=== PATIENT | male | born 1960 | race Caucasian/White ===

== ENCOUNTER 2017-05-01 09:14 | Day surgery (SDC) | payer OTHER ==
[~2017-05-01] VITALS: Ht 167.6 cm; Wt 67.5 kg
[~2017-05-01 09:14] MED LIST: ASPI325 PO; ATOR10 PO; CLOP75 PO; DIAZ5 PO; MECL25 PO; METO100ER PO; METO50 PO; OMEPRAZOLE MAGN20 MG PO
[2017-05-01] MEDS ORDERED: ATOR40TA PO (09:52)
--- NOTE | 2017-05-01 10:16 | NUR ---
05/01/17 Alyssa Daigle PT WAS NOTIFIED OF DELAY DUE TO A PREVIOUS PROCEDURE TAKING LONGER THAN SCHEDULED. PT REPORTS HE IS COMFORTABLE AT THIS TIME. HE HAS FAMILY AT THE BEDSIDE AND CALL LIGHT IS WITHIN REACH. BED IS IN THE LOWEST LOCKED POSITION.
--- NOTE | 2017-05-01 13:01 | NUR ---
05/01/17 1301 Katherine Edmonds PATIENT VERY SEDATED. AT SIDE. VSS. TOLERATING PO FLUIDS. WILL CONTINUE TO MONITOR AND DISCHARGE WHEN READY.
== END 2017-05-01 13:25 | disposition home or self-care (01) ==
LOC: ORSCSDS 09:14
PROVIDERS: Internal Medicine Gastroenterology
PROC: 0DBK8ZX Excision of Ascending Colon, Via Natural or Artificial Opening Endoscopic, Diagnostic (ICD-10-PCS; principal; 2017-05-01 10:30)
PROC: 0DBN8ZX Excision of Sigmoid Colon, Via Natural or Artificial Opening Endoscopic, Diagnostic (ICD-10-PCS; principal; 2017-05-01 10:30)
PROC: 0DBM8ZX Excision of Descending Colon, Via Natural or Artificial Opening Endoscopic, Diagnostic (ICD-10-PCS; principal; 2017-05-01 10:30)
PROC: 0DBL8ZX Excision of Transverse Colon, Via Natural or Artificial Opening Endoscopic, Diagnostic (ICD-10-PCS; principal; 2017-05-01 10:30)
PROC: 0DB58ZX Excision of Esophagus, Via Natural or Artificial Opening Endoscopic, Diagnostic (ICD-10-PCS; principal; 2017-05-01 10:30)
DX: R19.5 Other fecal abnormalities (principal); D12.5 Benign neoplasm of sigmoid colon; D12.2 Benign neoplasm of ascending colon; D12.3 Benign neoplasm of transverse colon; D12.4 Benign neoplasm of descending colon; K57.30 Diverticulosis of large intestine without perforation or abscess without bleeding; K21.9 Gastro-esophageal reflux disease without esophagitis; K22.70 Barrett's esophagus without dysplasia; B37.81 Candidal esophagitis; E78.5 Hyperlipidemia, unspecified; I10 Essential (primary) hypertension; J44.9 Chronic obstructive pulmonary disease, unspecified; F17.210 Nicotine dependence, cigarettes, uncomplicated; Z79.899 Other long term (current) drug therapy
CPT/HCPCS: 88305; 88312; J1980; J2250; J2310; J3010; J7120

== ENCOUNTER → 2017-09-01 | Outpatient (CLI) | payer OTHER ==
[~2017-09-01] MED LIST changes: +ATOR40TA PO
[2017-09-01 12:08] LABS: BASOPHILS ABSOLUTE AUTO 0.11 K/mm3 (0.00-0.23); BASOPHILS PERCENT AUTO 1 % (0-2); EOSINOPHILS ABSOLUTE AUTO 0.16 K/mm3 (0.00-0.68); EOSINOPHILS PERCENT AUTO 1 % (0-6); Hematocrit 43.8 % (37.0-53.0); Hemoglobin 14.8 g/dL (13.5-17.5); IMMATURE GRAN ABSOLUTE AUTO 0.08 K/mm3 (0.00-0.10); IMMATURE GRAN PERCENT AUTO 1 % (0-1); LYMPHOCYTES ABSOLUTE AUTO 1.41 K/mm3 (0.84-5.20); LYMPHOCYTES PERCENT AUTO 9 % (21-46); MONOCYTES ABSOLUTE AUTO 1.25 K/mm3 (0.16-1.47); MONOCYTES PERCENT AUTO 8 % (4-13); Mean Corpuscular HGB 32.5 pg (26.0-34.0); Mean Corpuscular HGB Conc 33.8 g/dL (31.5-36.5); Mean Corpuscular Volume 96 fL (80-100); Mean Platelet Volume 10.3 fL (9.1-12.4); NEUTROPHILS ABSOLUTE AUTO 13.54 K/mm3 (1.96-9.15); NEUTROPHILS PERCENT AUTO 82 % (41-73); Platelet Count 269 K/mm3 (150-400); RDW Coefficient Variation 13.6 % (11.7-14.2); RDW Standard Deviation 48.2 fL (35.1-46.3); Red Blood Cell Count 4.55 M/mm3 (4.30-5.90); White Blood Cell Count 16.55 K/mm3 (4.00-11.30)
== END | disposition home or self-care (01) ==
LOC: LAB EV 12:01 → LAB SHORT 12:01
PROVIDERS: Physician Assistant Surgical
DX: M79.675 Pain in left toe(s) (principal)
CPT/HCPCS: 84550; 85025

== ENCOUNTER → 2018-01-03 | Outpatient (CLI) | payer OTHER ==
[2018-01-03 13:40] LABS: Source, Urine Clean Catch
[2018-01-03 14:45] LABS: Bilirubin, Urine Neg (Neg); Blood, Urine 1+ (Neg); Glucose Qualitative, Urine Neg (Neg); Ketones, Urine Neg (Neg); Leukocyte Esterase, Urine 1+ (Neg); Nitrite, Urine Neg (Neg); Protein, Urine Neg (Neg); Specific Gravity, Urine 1.005 (1.003-1.022); Urobilinogen, Urine NORM (Normal); pH, Urine 6.5 (5.0-8.0)
[2018-01-03 15:01] LABS: Appearance, Urine Hazy (Clear); Color, Urine Yellow (P-Yellow)
[2018-01-03 15:03] LABS: Bacteria Few /hpf; Red Blood Cells, Urine 0-2 /hpf (0-2); Squamous Epithelial Cells Few /hpf (Few); White Blood Cells, Urine 0-2 /hpf (0-5)
== END ==
LOC: LAB SHORT 13:37 → LAB 13:37
PROVIDERS: Radiology Therapeutic Radiology
DX: R30.0 Dysuria (principal)
CPT/HCPCS: 81001; 87086

== ENCOUNTER 2020-08-28 07:45 | Day surgery (SDC) | payer OTHER ==
[~2020-08-28] VITALS: Ht 165.1 cm; Wt 69.1 kg
[2020-08-28] MEDS ORDERED: CAND4 (08:22)
[2020-08-28] MEDS ORDERED: PRAVASTATIN SOD10 MG (08:23)
== END 2020-08-28 10:50 | disposition home or self-care (01) ==
LOC: ORSCSDS 07:45
PROVIDERS: Internal Medicine Gastroenterology
PROC: 0DB78ZX Excision of Stomach, Pylorus, Via Natural or Artificial Opening Endoscopic, Diagnostic (ICD-10-PCS; principal; 2020-08-28 09:00)
PROC: 0DB58ZX Excision of Esophagus, Via Natural or Artificial Opening Endoscopic, Diagnostic (ICD-10-PCS; principal; 2020-08-28 09:00)
PROC: 0DBK8ZX Excision of Ascending Colon, Via Natural or Artificial Opening Endoscopic, Diagnostic (ICD-10-PCS; principal; 2020-08-28 09:00)
PROC: 0DBN8ZX Excision of Sigmoid Colon, Via Natural or Artificial Opening Endoscopic, Diagnostic (ICD-10-PCS; principal; 2020-08-28 09:00)
DX: Z12.11 Encounter for screening for malignant neoplasm of colon (principal); Z86.010 Personal history of colon polyps; K22.0 Achalasia of cardia; D12.5 Benign neoplasm of sigmoid colon; D12.2 Benign neoplasm of ascending colon; K44.9 Diaphragmatic hernia without obstruction or gangrene; K22.70 Barrett's esophagus without dysplasia; F17.210 Nicotine dependence, cigarettes, uncomplicated; Z79.899 Other long term (current) drug therapy
CPT/HCPCS: 88305; 88342; A9270; J0330; J0461; J2250; J2310; J2405; J3010; J7120

== ENCOUNTER → 2022-08-29 | Outpatient (CLI) | payer OTHER ==
[~2022-08-29] MED LIST changes: +CAND4; +PRAVASTATIN SOD10 MG
[2022-08-29 12:29] LABS: BASOPHILS ABSOLUTE AUTO 0.14 K/mm3 (0.00-0.23); BASOPHILS PERCENT AUTO 1 % (0-2); EOSINOPHILS ABSOLUTE AUTO 0.29 K/mm3 (0.00-0.68); EOSINOPHILS PERCENT AUTO 2 % (0-6); Hematocrit 37.3 % (37.0-53.0); Hemoglobin 12.6 g/dL (13.5-17.5); IMMATURE GRAN ABSOLUTE AUTO 0.09 K/mm3 (0.00-0.10); IMMATURE GRAN PERCENT AUTO 1 % (0-1); LYMPHOCYTES PERCENT AUTO 14 % (21-46); MONOCYTES ABSOLUTE AUTO 1.24 K/mm3 (0.16-1.47); MONOCYTES PERCENT AUTO 8 % (4-13); Mean Corpuscular HGB 32.3 pg (26.0-34.0); Mean Corpuscular HGB Conc 33.8 g/dL (31.5-36.5); Mean Corpuscular Volume 96 fL (80-100); Mean Platelet Volume 9.3 fL (9.1-12.4); NEUTROPHILS ABSOLUTE AUTO 11.69 K/mm3 (1.96-9.15); NEUTROPHILS PERCENT AUTO 75 % (41-73); Platelet Count 382 K/mm3 (150-400); RDW Coefficient Variation 14.4 % (11.7-14.2); RDW Standard Deviation 49.8 fL (35.1-46.3); White Blood Cell Count 15.65 K/mm3 (4.00-11.30)
[2022-08-29 12:47] LABS: Albumin, Blood 3.7 g/dL (3.4-5.0); Albumin/Globulin Ratio 0.7 (0.8-1.8); Bilirubin, Total 0.5 mg/dL (0.1-1.0); Bun/Creatinine Ratio 15.2 (12.0-20.0); Calcium, Blood 10.2 mg/dL (8.5-10.1); Creatinine, Blood 0.99 mg/dL (0.60-1.20); Potassium, Blood 5.1 mmol/L (3.5-5.5); Total Protein, Blood 8.7 g/dL (6.4-8.2)
[2022-08-29 13:52] LABS: Prostate Specific Antigen 0.212 ng/mL (0.000-4.000)
[2022-08-29 13:55] LABS: PSA, %Free Unable to Calculate %; PSA, Free <0.015 ng/mL
== END | disposition home or self-care (01) ==
LOC: LAB SHORT 12:17 → LAB 12:17
PROVIDERS: Family Medicine
DX: C61 Malignant neoplasm of prostate (principal); R30.0 Dysuria
CPT/HCPCS: 80053; 84153; 84154; 85025; 87077; 87086; 87186

== ENCOUNTER 2023-11-16 19:14 | Inpatient (IN) | payer MEDICARE, OTHER ==
[~2023-11-16] VITALS: Ht 175.3 cm; Wt 61.7 kg
[~2023-11-16 19:14] MED LIST changes: -PRAVASTATIN SOD10 MG; +PRAVASTATIN SOD10 MG PO
[2023-11-16 19:58] LABS: BASOPHILS ABSOLUTE AUTO 0.15 K/mm3 (0.00-0.23); BASOPHILS PERCENT AUTO 1 % (0-2); EOSINOPHILS ABSOLUTE AUTO 0.33 K/mm3 (0.00-0.68); EOSINOPHILS PERCENT AUTO 2 % (0-6); Hematocrit 29.9 % (37.0-53.0); Hemoglobin 9.6 g/dL (13.5-17.5); IMMATURE GRAN ABSOLUTE AUTO 0.12 K/mm3 (0.00-0.10); IMMATURE GRAN PERCENT AUTO 1 % (0-1); LYMPHOCYTES ABSOLUTE AUTO 1.81 K/mm3 (0.84-5.20); LYMPHOCYTES PERCENT AUTO 9 % (21-46); MONOCYTES ABSOLUTE AUTO 1.32 K/mm3 (0.16-1.47); MONOCYTES PERCENT AUTO 7 % (4-13); Mean Corpuscular HGB 29.4 pg (26.0-34.0); Mean Corpuscular HGB Conc 32.1 g/dL (31.5-36.5); Mean Corpuscular Volume 91 fL (80-100); Mean Platelet Volume 9.5 fL (9.1-12.4); NEUTROPHILS ABSOLUTE AUTO 15.44 K/mm3 (1.96-9.15); NEUTROPHILS PERCENT AUTO 81 % (41-73); Platelet Count 393 K/mm3 (150-400); RDW Coefficient Variation 13.6 % (11.7-14.2); RDW Standard Deviation 46.5 fL (35.1-46.3); Red Blood Cell Count 3.27 M/mm3 (4.30-5.90); White Blood Cell Count 19.17 K/mm3 (4.00-11.30)
[2023-11-16 20:20] LABS: Albumin, Blood 2.6 g/dL (3.4-5.0); Albumin/Globulin Ratio 0.5 (0.8-1.8); Bilirubin, Total 0.6 mg/dL (0.1-1.0); Bun/Creatinine Ratio 27.1 (12.0-20.0); Calcium, Blood 9.6 mg/dL (8.5-10.1); Creatinine, Blood 0.78 mg/dL (0.60-1.20); Globulin, Blood 5.5 g/dL (2.2-4.0); Potassium, Blood 4.1 mmol/L (3.5-5.5); Total Protein, Blood 8.1 g/dL (6.4-8.2)
[2023-11-16] MEDS ORDERED: CefTRIAXone Sodium 1,000 MG in NS 100 ML IV ONE (20:20)
[2023-11-16] MEDS ORDERED: Morphine Sulfate 4 MG/1 ML Injection IV ONE (21:30)
[2023-11-16 21:47] LABS: Source, Urine Foley catheter
[2023-11-16 22:06] LABS: Appearance, Urine Hazy (Clear); Bilirubin, Urine Neg (Neg); Blood, Urine 4+ (Neg); Glucose Qualitative, Urine Neg (Neg); Ketones, Urine Neg (Neg); Leukocyte Esterase, Urine 3+ (Neg); Nitrite, Urine Neg (Neg); Protein, Urine 2+ (Neg); Specific Gravity, Urine 1.005 (1.003-1.022); Urobilinogen, Urine NORM (Normal)
[2023-11-16 22:15] LABS: Color, Urine Pale Yellow (P-Yellow)
[2023-11-16 22:17] LABS: Amorphous Light (0-Heavy); Bacteria Mod /hpf; Mucus Light (0-Heavy); Squamous Epithelial Cells Few /hpf (Few); White Blood Cells, Urine 25-50 /hpf (0-5)
[2023-11-16] MEDS ORDERED: Acetaminophen 325 MG TABLET PO PRN (22:50)
[2023-11-16] MEDS ORDERED: Ondansetron HCl 2 MG / ML 2ML Vial IV PRN (22:55)
[2023-11-16] MEDS ORDERED: NS 1,000 ML IV SCH (23:00)
[2023-11-17 00:58] LABS: Uric Acid, Blood 9.7 mg/dL (3.5-7.2)
[2023-11-17 01:26] VITALS: BP 142/66
--- NOTE | 2023-11-17 05:39 | NUR ---
Shift Summary Pt adimitted to this unit for sepsis secondary to UTI. He is rcving 1L of NS @ 125 on this floor and got IV ABX in the ED. He has a suprapubic catheter which was changed in the ED. He has some odorous discharge from the catheter and his penis which he says has been ongoing. He has an old healing ulcer on his L heel, I placed a mepilex and elevated his heels off the bed. Pt c/o of pain in his R upper thigh, he thinks he pulled a muscle there in the last week. Medicated per emar for the muscle pain. Pt states he deanna't slept in 2 days but was able to sleep around 0330. He is AOx4 and uses a walker at baseline but has not gotten up this shift.
[2023-11-17 06:12] LABS: BASOPHILS ABSOLUTE AUTO 0.11 K/mm3 (0.00-0.23); BASOPHILS PERCENT AUTO 1 % (0-2); EOSINOPHILS ABSOLUTE AUTO 0.32 K/mm3 (0.00-0.68); EOSINOPHILS PERCENT AUTO 2 % (0-6); Hematocrit 27.3 % (37.0-53.0); Hemoglobin 8.8 g/dL (13.5-17.5); IMMATURE GRAN ABSOLUTE AUTO 0.08 K/mm3 (0.00-0.10); IMMATURE GRAN PERCENT AUTO 1 % (0-1); LYMPHOCYTES ABSOLUTE AUTO 2.49 K/mm3 (0.84-5.20); LYMPHOCYTES PERCENT AUTO 18 % (21-46); MONOCYTES ABSOLUTE AUTO 1.22 K/mm3 (0.16-1.47); MONOCYTES PERCENT AUTO 9 % (4-13); Mean Corpuscular HGB 29.2 pg (26.0-34.0); Mean Corpuscular HGB Conc 32.2 g/dL (31.5-36.5); Mean Corpuscular Volume 91 fL (80-100); Mean Platelet Volume 9.6 fL (9.1-12.4); NEUTROPHILS ABSOLUTE AUTO 9.53 K/mm3 (1.96-9.15); NEUTROPHILS PERCENT AUTO 69 % (41-73); Platelet Count 356 K/mm3 (150-400); RDW Coefficient Variation 13.7 % (11.7-14.2); RDW Standard Deviation 45.2 fL (35.1-46.3); Red Blood Cell Count 3.01 M/mm3 (4.30-5.90); White Blood Cell Count 13.75 K/mm3 (4.00-11.30)
[2023-11-17 06:46] LABS: Albumin, Blood 2.4 g/dL (3.4-5.0); Albumin/Globulin Ratio 0.5 (0.8-1.8); Bilirubin, Total 0.4 mg/dL (0.1-1.0); Bun/Creatinine Ratio 25.4 (12.0-20.0); Calcium, Blood 9.3 mg/dL (8.5-10.1); Creatinine, Blood 0.71 mg/dL (0.60-1.20); Magnesium, Blood 1.3 mg/dL (1.6-2.4); Potassium, Blood 3.8 mmol/L (3.5-5.5); Total Protein, Blood 7.4 g/dL (6.4-8.2)
[2023-11-17 07:10] VITALS: BP 145/65
[2023-11-17] MEDS ORDERED: Lactobacil 2-S.Thermo-Bifido 1 1 Cap PO SCH (09:00)
[2023-11-17] MEDS ORDERED: Enoxaparin 40 MG/0.4 ML SYR SC SCH (09:00)
[2023-11-17] MEDS ORDERED: OXYC10TA19 PO (09:43)
[2023-11-17] MEDS ORDERED: PREG300 PO (09:44)
[2023-11-17] MEDS ORDERED: OXYB5 PO (09:44)
[2023-11-17] MEDS ORDERED: OxyCODONE HCL 5 MG TAB PO PRN (11:20)
[2023-11-17] MEDS ORDERED: Polyethylene Glycol 3350 17 gm PO PRN (13:20)
[2023-11-17 15:17] VITALS: BP 102/42
--- NOTE | 2023-11-17 16:09 | NUR ---
SHIFT SUMMARY: PATIENT A/OX4, CALM, PLEASANT AND COOPERATIVE c CARE. PATIENT REPORTS PAIN 8/10 TO R GROIN DOWN TO FOOT, MEDICATED c PO OXYCODONE PER EMAR c GOOD EFFECT. PATIENT DENIES CP/PRESSURE, N/V, DIZZINESS AND SOB. PATIENT HAS GOOD APPETITE, CHRONIC SUPRAPUBIC CATH, PATENT DRAINING YELLOW URINE TO GRAVITY. VITAL SIGNS REVIEWED. PATIENT HAS NO COMPLAINTS OR DENIES NEW CONCERNED THIS SHIFT. SPOUSE AT BEDSIDE T/O THE DAY. BED ALARM ON FOR SAFETY. CALL LIGHT IN REACH.
[2023-11-17] MEDS ORDERED: INDO50 PO (16:19)
[2023-11-17] MEDS ORDERED: COLCHICINE0.6 MG PO (16:20)
[2023-11-17] MEDS ORDERED: Magnesium Sulf 2 GM/Water 50ML 50 ML IV ONE (17:25)
[2023-11-17 19:13] VITALS: BP 103/65
[2023-11-17] MEDS ORDERED: NS 250 ML IV PRN (20:50)
[2023-11-17] MEDS ORDERED: CefTRIAXone Sodium 1,000 MG in NS 100 ML IV SCH (21:00)
[2023-11-17] MEDS ORDERED: Colchicine 0.6 MG TAB PO SCH (21:00)
[2023-11-17] MEDS ORDERED: Pregabalin 75 MG Cap PO SCH (21:00)
[2023-11-18 02:55] VITALS: BP 134/84
[2023-11-18] MEDS ORDERED: Omeprazole 20 MG CapCR PO SCH (06:00)
[2023-11-18 06:09] LABS: Hematocrit 26.8 % (37.0-53.0); Hemoglobin 8.7 g/dL (13.5-17.5); Mean Corpuscular HGB 29.1 pg (26.0-34.0); Mean Corpuscular HGB Conc 32.5 g/dL (31.5-36.5); Mean Corpuscular Volume 90 fL (80-100); Mean Platelet Volume 9.6 fL (9.1-12.4); Platelet Count 351 K/mm3 (150-400); RDW Coefficient Variation 13.7 % (11.7-14.2); Red Blood Cell Count 2.99 M/mm3 (4.30-5.90); White Blood Cell Count 13.38 K/mm3 (4.00-11.30)
[2023-11-18 06:55] LABS: Bun/Creatinine Ratio 12.9 (12.0-20.0); Calcium, Blood 9.3 mg/dL (8.5-10.1); Creatinine, Blood 0.54 mg/dL (0.60-1.20); Magnesium, Blood 1.6 mg/dL (1.6-2.4); Percent Saturation 11.3 % (20.0-50.0); Phosphorus, Blood 3.3 mg/dL (2.5-4.9); Potassium, Blood 3.8 mmol/L (3.5-5.5)
[2023-11-18 07:05] VITALS: BP 163/79
[2023-11-18] MEDS ORDERED: oxyBUTYnin chloride 5 MG TAB PO SCH (09:00)
[2023-11-18] MEDS ORDERED: Aspirin 325 MG Tab PO SCH (09:00)
[2023-11-18] MEDS ORDERED: Metoprolol Succinate 50 MG TABCR PO SCH (09:00)
[2023-11-18] MEDS ORDERED: Pravastatin Sodium 20 MG Tab PO SCH (09:00)
[2023-11-18 15:11] VITALS: BP 130/76
[2023-11-18] MEDS ORDERED: Sod Ferric Gluc Complx/Sucrose 125 MG in NS 100 ML IV SCH (16:00)
--- NOTE | 2023-11-18 17:35 | NUR ---
SHIFT SUMMARY: PATIENT A/OX4, CALM, PLEASANT AND COOPERATIVE c CARE. PATIENT AMBULATED c SPOUSE TODAY OUT IN THE VICK X2, DID WELL, SHOWERED AND LINEN CHANGED. MIPELEX DREESING CHANGED TO L HEEL FOR PROTECTION. PATIENT REPORTS PAIN TO R GROIN AREA DOWN TO FOOT, MEDICATED c PRN PAIN MEDS c GOOD EFFECT. PATIENT EATING, DRINKING WELL, SUPRAPUBIC CATH PATENT, DRAINING YELLOW URINE TO GRAVITY. VITAL SIGNS REVIEWED. PATIENT HAS NO COMPLAINTS OR DENIES NEW CONCERNED THIS SHIFT. BED ALARM ON FOR SAFETY. CALL LIGHT IN REACH.
[2023-11-18 19:24] VITALS: BP 160/71
[2023-11-19 03:46] VITALS: BP 141/78
[2023-11-19 05:34] LABS: Hematocrit 26.8 % (37.0-53.0); Hemoglobin 8.7 g/dL (13.5-17.5); Mean Corpuscular HGB 29.1 pg (26.0-34.0); Mean Corpuscular HGB Conc 32.5 g/dL (31.5-36.5); Mean Corpuscular Volume 90 fL (80-100); Platelet Count 359 K/mm3 (150-400); RDW Coefficient Variation 13.5 % (11.7-14.2); RDW Standard Deviation 44.4 fL (35.1-46.3); Red Blood Cell Count 2.99 M/mm3 (4.30-5.90); White Blood Cell Count 11.59 K/mm3 (4.00-11.30)
--- NOTE | 2023-11-19 06:19 | NUR ---
Patient alert and oriented x4, VSS, resting comfortably in bed overnight. Patient slept majority of shift, tolerating room air appropriately. AM labs drawn via Powerglide to RUE, line drawing blood appropriately. Suprapubic catheter in place and draining appropriately.
[2023-11-19 07:37] VITALS: BP 140/83
--- NOTE | 2023-11-19 09:00 | NUR ---
pt laying in bed watching tv, a/ox4, pleasant and cooperative with care, follows commands well, denies pain, states he's ready to go home, lungs are clear t/o, resp even and unlabored, no cough noted, hrr, no edema noted, ppp+2, cap refill <3 sec, vs stable, afebrile, power glide to srinivas site is clear and patent, btx4, reports reg bm's, supra pubic cath draining yellow urine, skin c/w/d, carlos ng, call light in reach.
[2023-11-19 09:19] VITALS: BP 136/64
[2023-11-19] MEDS ORDERED: VISBIOME 112.51 EACH PO (10:09)
[2023-11-19] MEDS ORDERED: VITAMIN C125 MG PO (10:09)
[2023-11-19] MEDS ORDERED: FERSU300 PO (10:10)
[2023-11-19] MEDS ORDERED: CIPR500 PO (10:10)
--- NOTE | 2023-11-19 13:17 | NUR ---
Pt has been discharged to home, faxed new meds to [facility], called to confirm they recieved, power glide removed intact, went over discharge instructions with pt and spouce, verbalized understanding, left via wheelchair with all his belongings with energy sales broker in attendence.
[2023-11-20 19:51] LABS: HOMOCYSTEINE,TOTAL 14 umol/L (0-15)
== END 2023-11-19 12:15 | disposition hospice, home (50) | DRG 698 ==
LOC: ER 19:14 → MEDS 22:49 → ENPENDDIS 11-19 09:54 → MEDS 11-19 12:15
PROVIDERS: Emergency Medicine; Internal Medicine; ADMIT Student in an Organized Health Care Education/Training Program
DX: T83.518A Infection and inflammatory reaction due to other urinary catheter, initial encounter (principal); A41.9 Sepsis, unspecified organism; G93.41 Metabolic encephalopathy; N39.0 Urinary tract infection, site not specified; E87.1 Hypo-osmolality and hyponatremia; E86.1 Hypovolemia; L89.620 Pressure ulcer of left heel, unstageable; E83.42 Hypomagnesemia; D50.9 Iron deficiency anemia, unspecified; I25.10 Atherosclerotic heart disease of native coronary artery without angina pectoris; G89.29 Other chronic pain; K21.9 Gastro-esophageal reflux disease without esophagitis; M10.9 Gout, unspecified; E53.8 Deficiency of other specified B group vitamins; E78.5 Hyperlipidemia, unspecified; J45.909 Unspecified asthma, uncomplicated; F17.210 Nicotine dependence, cigarettes, uncomplicated; Y84.6 Urinary catheterization as the cause of abnormal reaction of the patient, or of later complication, without mention of misadventure at the time of the procedure; Z88.8 Allergy status to other drugs, medicaments and biological substances; Z88.2 Allergy status to sulfonamides; Z88.1 Allergy status to other antibiotic agents; Z91.012 Allergy to eggs; I25.2 Old myocardial infarction; Z95.5 Presence of coronary angioplasty implant and graft; Z85.46 Personal history of malignant neoplasm of prostate; Z98.890 Other specified postprocedural states; Z92.3 Personal history of irradiation; Z90.49 Acquired absence of other specified parts of digestive tract; Z91.013 Allergy to seafood; Z79.82 Long term (current) use of aspirin; Z79.899 Other long term (current) drug therapy
CPT/HCPCS: 36415; 51705; 80048; 80053; 81001; 82607; 82728; 82746; 83090; 83540; 83550; 83605; 83735; 83930; 83935; 84100; 84300; 84550; 85025; 85027; 87040; 87077; 87086; 87186; 93971; 96365-59; 96375-59; 99285-25; A9270; C1751; C2627; J0696; J1650; J2916; J3475; J7030; J7050

== ENCOUNTER → 2024-01-15 | Outpatient (CLI) | payer MEDICARE, OTHER ==
[~2024-01-15] MED LIST changes: +CIPR500 PO; +COLCHICINE0.6 MG PO; +FERSU300 PO; +INDO50 PO; +OXYB5 PO; +OXYC10TA19 PO; +PREG300 PO; +VISBIOME 112.51 EACH PO; +VITAMIN C125 MG PO
[2024-01-15 18:25] LABS: BASOPHILS ABSOLUTE AUTO 0.14 K/mm3 (0.00-0.23); BASOPHILS PERCENT AUTO 1 % (0-2); EOSINOPHILS ABSOLUTE AUTO 0.42 K/mm3 (0.00-0.68); EOSINOPHILS PERCENT AUTO 3 % (0-6); Hematocrit 33.4 % (37.0-53.0); Hemoglobin 10.7 g/dL (13.5-17.5); IMMATURE GRAN ABSOLUTE AUTO 0.08 K/mm3 (0.00-0.10); IMMATURE GRAN PERCENT AUTO 1 % (0-1); LYMPHOCYTES ABSOLUTE AUTO 2.72 K/mm3 (0.84-5.20); LYMPHOCYTES PERCENT AUTO 18 % (21-46); MONOCYTES ABSOLUTE AUTO 0.87 K/mm3 (0.16-1.47); MONOCYTES PERCENT AUTO 6 % (4-13); Mean Corpuscular HGB 27.8 pg (26.0-34.0); Mean Corpuscular Volume 87 fL (80-100); Mean Platelet Volume 10.3 fL (9.1-12.4); NEUTROPHILS ABSOLUTE AUTO 11.02 K/mm3 (1.96-9.15); NEUTROPHILS PERCENT AUTO 72 % (41-73); Platelet Count 553 K/mm3 (150-400); RDW Coefficient Variation 14.6 % (11.7-14.2); RDW Standard Deviation 46.7 fL (35.1-46.3); Red Blood Cell Count 3.85 M/mm3 (4.30-5.90); White Blood Cell Count 15.25 K/mm3 (4.00-11.30)
[2024-01-15 23:00] LABS: Albumin, Blood 3.1 g/dL (3.4-5.0); Albumin/Globulin Ratio 0.5 (0.8-1.8); Bilirubin, Total 0.3 mg/dL (0.1-1.0); Bun/Creatinine Ratio 11.3 (12.0-20.0); C-REACTIVE PROTEIN, EXT RANGE 5.74 mg/dL (0.000-0.300); Creatinine, Blood 0.71 mg/dL (0.60-1.20); Globulin, Blood 5.9 g/dL (2.2-4.0); Potassium, Blood 3.6 mmol/L (3.5-5.5)
== END ==
LOC: LAB SHORT 17:50 → LAB 17:50
PROVIDERS: Family Medicine
DX: C61 Malignant neoplasm of prostate (principal); M86.18 Other acute osteomyelitis, other site; K65.1 Peritoneal abscess
CPT/HCPCS: 80053; 85025; 86140

== ENCOUNTER → 2024-01-24 | Outpatient (CLI) | payer MEDICARE, OTHER ==
[2024-01-24 15:49] LABS: BASOPHILS ABSOLUTE AUTO 0.13 K/mm3 (0.00-0.23); BASOPHILS PERCENT AUTO 1 % (0-2); EOSINOPHILS ABSOLUTE AUTO 0.42 K/mm3 (0.00-0.68); EOSINOPHILS PERCENT AUTO 3 % (0-6); Hemoglobin 11.1 g/dL (13.5-17.5); IMMATURE GRAN ABSOLUTE AUTO 0.08 K/mm3 (0.00-0.10); IMMATURE GRAN PERCENT AUTO 1 % (0-1); LYMPHOCYTES ABSOLUTE AUTO 2.91 K/mm3 (0.84-5.20); LYMPHOCYTES PERCENT AUTO 20 % (21-46); MONOCYTES ABSOLUTE AUTO 0.57 K/mm3 (0.16-1.47); MONOCYTES PERCENT AUTO 4 % (4-13); Mean Corpuscular HGB 27.5 pg (26.0-34.0); Mean Corpuscular HGB Conc 32.6 g/dL (31.5-36.5); Mean Corpuscular Volume 84 fL (80-100); Mean Platelet Volume 10.4 fL (9.1-12.4); NEUTROPHILS ABSOLUTE AUTO 10.21 K/mm3 (1.96-9.15); NEUTROPHILS PERCENT AUTO 71 % (41-73); Platelet Count 459 K/mm3 (150-400); RDW Coefficient Variation 14.8 % (11.7-14.2); RDW Standard Deviation 45.3 fL (35.1-46.3); Red Blood Cell Count 4.04 M/mm3 (4.30-5.90); White Blood Cell Count 14.32 K/mm3 (4.00-11.30)
[2024-01-24 15:55] LABS: Albumin, Blood 2.8 g/dL (3.4-5.0); Albumin/Globulin Ratio 0.5 (0.8-1.8); Bilirubin, Total 0.3 mg/dL (0.1-1.0); Bun/Creatinine Ratio 11.3 (12.0-20.0); C-REACTIVE PROTEIN, EXT RANGE 3.78 mg/dL (0.000-0.300); Calcium, Blood 9.6 mg/dL (8.5-10.1); Creatinine, Blood 0.62 mg/dL (0.60-1.20); Globulin, Blood 5.1 g/dL (2.2-4.0); Potassium, Blood 3.7 mmol/L (3.5-5.5); Total Protein, Blood 7.9 g/dL (6.4-8.2)
== END ==
LOC: LAB SHORT 15:24 → LAB 15:24
DX: M86.18 Other acute osteomyelitis, other site (principal); K65.1 Peritoneal abscess; L89.620 Pressure ulcer of left heel, unstageable; I10 Essential (primary) hypertension
CPT/HCPCS: 80053; 85025; 86140

== ENCOUNTER 2024-01-30 02:34 | Day surgery (SDC) | payer MEDICARE, OTHER ==
[2024-01-30] MEDS ORDERED: Lidocaine HCl 4% Cream 5 GM ONE (12:29)
== END 2024-01-30 23:00 | disposition home or self-care (01) ==
LOC: WOUND 02:34
DX: L89.152 Pressure ulcer of sacral region, stage 2 (principal); I10 Essential (primary) hypertension; E78.5 Hyperlipidemia, unspecified; I25.10 Atherosclerotic heart disease of native coronary artery without angina pectoris; Z85.46 Personal history of malignant neoplasm of prostate; Z88.2 Allergy status to sulfonamides; Z87.891 Personal history of nicotine dependence
CPT/HCPCS: A6213; A9270; G0463

== ENCOUNTER 2024-02-14 01:37 | Day surgery (SDC) | payer MEDICARE, OTHER | END 2024-02-14 22:40 | disposition home or self-care (01) | LOC: WOUND 01:37 | DX: L89.890 Pressure ulcer of other site, unstageable (principal); L89.153 Pressure ulcer of sacral region, stage 3; S91.302A Unspecified open wound, left foot, initial encounter; X58.XXXA Exposure to other specified factors, initial encounter | CPT/HCPCS: A6214; G0463 ==

== ENCOUNTER 2024-02-23 01:40 | Day surgery (SDC) | payer MEDICARE, OTHER ==
[2024-02-23] MEDS ORDERED: Lidocaine HCl 4% Cream 5 GM ONE (14:41)
== END 2024-02-23 22:52 | disposition home or self-care (01) ==
LOC: WOUND 01:40
DX: L89.890 Pressure ulcer of other site, unstageable (principal); L89.152 Pressure ulcer of sacral region, stage 2; I25.10 Atherosclerotic heart disease of native coronary artery without angina pectoris; I10 Essential (primary) hypertension; E78.5 Hyperlipidemia, unspecified; Z85.46 Personal history of malignant neoplasm of prostate
CPT/HCPCS: A6213; A6214; A9270

== ENCOUNTER 2024-03-07 02:19 | Day surgery (SDC) | payer MEDICARE, OTHER ==
[2024-03-07] MEDS ORDERED: Lidocaine HCl 4% Cream 5 GM ONE (14:46)
== END 2024-03-08 02:40 | disposition home or self-care (01) ==
LOC: WOUND 02:19
DX: S91.302S Unspecified open wound, left foot, sequela (principal); L89.153 Pressure ulcer of sacral region, stage 3; L89.622 Pressure ulcer of left heel, stage 2
CPT/HCPCS: A6214; A9270

== ENCOUNTER 2024-03-15 02:46 | Day surgery (SDC) | payer MEDICARE, OTHER ==
[2024-03-15] MEDS ORDERED: Lidocaine HCl 4% Cream 5 GM ONE (13:27)
== END 2024-03-15 22:52 | disposition home or self-care (01) ==
LOC: WOUND 02:46
DX: L89.620 Pressure ulcer of left heel, unstageable (principal); L89.153 Pressure ulcer of sacral region, stage 3; I25.10 Atherosclerotic heart disease of native coronary artery without angina pectoris; I10 Essential (primary) hypertension; E78.5 Hyperlipidemia, unspecified; S91.302S Unspecified open wound, left foot, sequela; X58.XXXS Exposure to other specified factors, sequela
CPT/HCPCS: A9270

== ENCOUNTER 2024-03-29 08:00 | Day surgery (SDC) | payer MEDICARE, OTHER | END 2024-04-01 22:49 | disposition home or self-care (01) | LOC: WOUND 08:00 | DX: L89.893 Pressure ulcer of other site, stage 3 (principal); L89.622 Pressure ulcer of left heel, stage 2; I25.10 Atherosclerotic heart disease of native coronary artery without angina pectoris; I25.2 Old myocardial infarction; I10 Essential (primary) hypertension; E78.5 Hyperlipidemia, unspecified; Z85.46 Personal history of malignant neoplasm of prostate | CPT/HCPCS: A6214 ==

== ENCOUNTER 2024-04-05 04:10 | Day surgery (SDC) | payer MEDICARE, OTHER | END 2024-04-06 02:51 | disposition home or self-care (01) | LOC: WOUND 04:10 | DX: L89.623 Pressure ulcer of left heel, stage 3 (principal); S91.302A Unspecified open wound, left foot, initial encounter; I10 Essential (primary) hypertension; I25.10 Atherosclerotic heart disease of native coronary artery without angina pectoris; E78.5 Hyperlipidemia, unspecified | CPT/HCPCS: A6214; G0463 ==

== ENCOUNTER 2024-05-03 03:53 | Day surgery (SDC) | payer MEDICARE, OTHER | END 2024-05-05 05:30 | disposition home or self-care (01) | LOC: WOUND 03:53 | DX: L89.623 Pressure ulcer of left heel, stage 3 (principal); S91.302A Unspecified open wound, left foot, initial encounter; I10 Essential (primary) hypertension; E78.5 Hyperlipidemia, unspecified; I25.10 Atherosclerotic heart disease of native coronary artery without angina pectoris | CPT/HCPCS: A6213; G0463 ==

== ENCOUNTER 2024-05-10 03:53 | Day surgery (SDC) | payer MEDICARE, OTHER | END 2024-05-10 23:00 | disposition home or self-care (01) | LOC: WOUND 03:53 | DX: L89.623 Pressure ulcer of left heel, stage 3 (principal); S91.302S Unspecified open wound, left foot, sequela; I25.10 Atherosclerotic heart disease of native coronary artery without angina pectoris; I10 Essential (primary) hypertension; E78.5 Hyperlipidemia, unspecified; X58.XXXS Exposure to other specified factors, sequela | CPT/HCPCS: G0463 ==